=== PATIENT | male | born 1955 | race Caucasian/White ===

== ENCOUNTER 2017-02-05 15:56 | Emergency (ER) | payer BC ==
[2017-02-05] MEDS ORDERED: Adacel Vial IM ONE (16:06)
--- NOTE | 2017-02-05 16:09 | ERPHSYRPT ---
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 PATIENT COMPLAINS OF PAIN WITH LACERATION. Method of Injury: fell, incised Occurred: just prior to arrival Quality: constant Severity of Pain-Max: mild Severity of Pain-Current: mild Lower Extremities Pain: leg: left Modifying Factors: Improves With: movement Associated Symptoms: none Allergies/Adverse Reactions: No Known Drug Allergies Allergy (Unverified 02/05/17 16:04) Home Medications: Aspirin 81 gm Chew [Baby Aspirin 81 mg Chew] 81 mg PO DAILY 02/05/17 [ History] Naproxen Sodium [Aleve] 220 mg PO DAILY 02/05/17 [History] Hx Tetanus, Diphtheria Vaccination/Date Given: No Hx Influenza Vaccination/Date Given: No Hx Pneumococcal Vaccination/Date Given: No Immunizations Up to Date: Yes - Review of Systems Musculoskeletal: Injury - Past Medical History Pertinent Past Medical History: No - Past Surgical History Past Surgical History: Yes Musculoskeletal: Orthopedic Surgery - Social History Smoking Status: Never smoker Exposure to second hand smoke: No Drug Use: none Patient Lives Alone: No - Nursing Vital Signs Nursing Vital Signs: Initial Vital Signs Temperature 98.2 F Temperature Source Oral Pulse Rate 84 Respiratory Rate 18 Blood Pressure [Right Arm] 144/95 Pain Intensity 0 - Physical Exam General Appearance: no apparent distress Legs Exam: left leg: pain, soft tissue tenderness, swelling (THERE IS A 7CM LACERATION MID LEFT BOYD, NO EVIDENCE FOREIGN BODY) Foot Exam: left foot: other (PEDIS PULSE 2+) Neuro/Tendon Exam: normal sensation, normal motor functions Mental Status Exam: alert SpO2 Interpretation: normal SpO2: 95 Oxygen Delivery: Room Air Procedures - Laceration/Wound Repair Left Wound Location: Left, lower leg Wound Length (cm): 7 Wound's Depth, Shape: linear Wound Explored: clean Irrigated: Yes Hibiclens Prep: Yes Anesthesia: local, 2% Lidocaine Volume Anesthetic (ccs): 7 Wound Repaired With: sutures Suture Size/Type: 4-0 Number of Sutures: 13 Layer Closure?: No Sterile Dressing Applied?: Yes - Radiology Exams Left Lower Leg X-ray Interpretation: Interpreted by me, Negative, No Fracture Ordered Tests: Active Orders 24 hr Category Date Time Status LOWER LEG Stat Exams 02/05/17 16:08 Taken Medication Summary Discontinued Medications Generic Name Dose Route Start Last Admin Trade Name Freq PRN Reason Stop Dose Admin Bacitracin 0.9 gm 02/05/17 17:25 Baciguent Packet TP 02/05/17 17:26 STAT ONE Diphtheria/Tetanus/Acell Pertussis Confirm 02/05/17 16:06 Adacel Vial Administered 02/05/17 16:07 Dose 0.5 ml IM .STK-MED ONE - Progress Progress: improved Counseled pt/family regarding: diagnosis, need for follow-up, rad results - Departure Time of Disposition: 17:35 Departure Disposition: Home Clinical Impression: LACERATION LEFT BOYD Condition: Stable Critical Care Time: No Instructions: Care for a Laceration After Repair Additional Instructions: HAVE STITCHES REMOVED AT 12 DAYS. ANTIBIOTIC KEFLEX 500MG EVERY 8 HOURS FOR 10 DAYS. NORCO 10/325 EVERY 4 HOURS FOR PAIN NEEDED. WATCH FOR SIGNS OF INFECTION REDNESS, SWELLING AND DRAINAGE. APPLY ICE OVER WOUND WITH ELEVATION EVERY 4 HOURS, 30 MINUTES FOR 48 HOURS. Prescriptions: Hydrocodone/APAP 10/325 mg [Power 10/325 MG Tablet] 1 tab PO Q4H PRN PRN # 20 tablet PRN Reason: Pain Cephalexin Mh 500 mg [Keflex 500 mg] 500 mg PO TID #30 capsule
[2017-02-05] MEDS ORDERED: BACIGUENT PACKET TP ONE (17:25)
[2017-02-05] MEDS ORDERED: Xylocaine-Mpf 2% 5 Ml Vial IJ ONE (17:28)
[2017-02-05] MEDS ORDERED: XYLOCAINE 1% HCL 20 ML MDV ONE (17:28)
[2017-02-05] MEDS ORDERED: BACIGUENT PACKET ONE (17:28)
[2017-02-05 17:39] VITALS: BP 117/77; PULSE 80; O2SAT 93
[2017-02-05] MEDS ORDERED: XYLOCAINE 2% HCL 20 ML MDV ONE (17:47)
--- NOTE | 2017-02-05 21:55 | XRAY ---
Indication: Laceration. Comparison: None 2 views of the left lower leg demonstrates mild medial knee degenerative changes. No other bony, articular, or soft tissue abnormalities.
== END 2017-02-05 17:39 | disposition home or self-care (01) ==
LOC: ED 15:56
PROC: 0HQLXZZ Repair Left Lower Leg Skin, External Approach (ICD-10-PCS; principal; 2017-02-05)
DX: S81.812A Laceration without foreign body, left lower leg, initial encounter (principal); W45.8XXA Other foreign body or object entering through skin, initial encounter; Y93.H3 Activity, building and construction
CPT/HCPCS: 12002; 73590; 90471; 90715; 96372; 99284; A9270-GY

== ENCOUNTER 2017-03-12 10:45 | Emergency (ER) | payer BC ==
[2017-03-12 11:11] VITALS: O2SAT 98
--- NOTE | 2017-03-12 11:15 | ERPHSYRPT ---
- History of Present Illness Time Seen by Provider: 03/12/17 11:11 Source: patient Exam Limitations: no limitations Patient Subjective Stated Complaint: pt states he recieved sutured to left lower leg on Feb 05 2017. states area has never healed. states he accidently bumped the area and area opened up again. Triage Nursing Assessment: pt pink, warm, dry. yellow drainage noted. pt afebrile. Physician History: pt states he recieved sutured to left lower leg on Feb 05 2017. states area has never healed. states he accidently bumped the area and area opened up again. denies fever, denies pain n left leg Lower Extremities Pain: leg: left (mild redness erythema around wound) Modifying Factors: Improves With: nothing Associated Symptoms: none Allergies/Adverse Reactions: No Known Drug Allergies Allergy (Unverified 03/12/17 11:10) Home Medications: Aspirin 81 gm Chew [Baby Aspirin 81 mg Chew] 81 mg PO DAILY 02/05/17 [ History] Glucosamine/D3/Boswellia Roxie [Osteo Bi-Flex Tablet] 1 each PO DAILY 03/12/17 [ History] Naproxen Sodium [Aleve] 220 mg PO DAILY 03/12/17 [History] Hx Tetanus, Diphtheria Vaccination/Date Given: Yes (up to date) Hx Influenza Vaccination/Date Given: No Hx Pneumococcal Vaccination/Date Given: No Immunizations Up to Date: Yes - Review of Systems Constitutional: No Symptoms, No Fever Skin: Cellulitis Neurological: No Symptoms Psychological: No Symptoms - Past Medical History Pertinent Past Medical History: No - Past Surgical History Past Surgical History: Yes Gastrointestinal: Cholecystectomy Musculoskeletal: Orthopedic Surgery Other Surgical History: carpal tunel - Social History Smoking Status: Never smoker Exposure to second hand smoke: No Drug Use: none Patient Lives Alone: No - Nursing Vital Signs Nursing Vital Signs: Initial Vital Signs Temperature 97.7 F Temperature Source Oral Pulse Rate 74 Respiratory Rate 18 Blood Pressure [Right Arm] 155/78 Pain Intensity 0 - Physical Exam General Appearance: no apparent distress Eyes, Ears, Nose, Throat Exam: normal ENT inspection Legs Exam: left leg: soft tissue tenderness, swelling SpO2: 98 Oxygen Delivery: Room Air - Course Nursing assessment & vital signs reviewed: Yes Ordered Tests: Active Orders 24 hr Category Date Time Status Wound Care STAT Care 03/12/17 10:56 Active - Progress Progress: improved Counseled pt/family regarding: diagnosis, need for follow-up - Departure Time of Disposition: 11:13 Departure Disposition: Home Clinical Impression: Left leg cellulitis Condition: Stable Critical Care Time: No Referrals: VERONICA ROSS MD [Primary Care Provider] - Instructions: Cellulitis -- Adult Additional Instructions: LACERATION CARE 1. Do not use peroxide, merthiolate, alcohol, or betadine. 2. Keep wound clean and dry. 3. Change dressing if it becomes wet or soiled. 4. If you must work, wear protective covering. 5. You may return to the emergency department or see your family physician for suture removal. 6. See your family physician or return to the emergency department for any of the following signs or symptoms: A. Redness B. Swelling C. Discolored drainage D. Red streaks E. Elevated temperature F. Other signs of infection Prescriptions: Levofloxacin [Levaquin 500 MG Tablet] 500 mg PO QAM #7 tablet
[2017-03-12 11:32] VITALS: BP 126/72; PULSE 81
== END 2017-03-12 11:30 | disposition home or self-care (01) ==
LOC: ED 10:45
DX: L03.116 Cellulitis of left lower limb (principal)
CPT/HCPCS: 99283

== ENCOUNTER 2025-07-07 20:43 | Emergency (ER) | payer MEDICARE, OTHER ==
[2025-07-07 20:54] VITALS: TEMP 98.3; O2SAT 95
--- NOTE | 2025-07-07 21:20 | ERPHSYRPT ---
- History of Present Illness Time Seen by Provider: 07/07/25 20:51 Source: patient Exam Limitations: no limitations Patient Subjective Stated Complaint: c/o nosebleed Triage Nursing Assessment: Patient brought to ED by with w/o nosebleed from left nare. patient has guaze in place at this time. states the bleeding started arounf 1630 and hasn't stopped. takes plavix at home, skin w/n/d, afebrile, gait steady, denies pain at this time, afebrile, patient doesn't appear to be in any distress, denies lightheadedness, denies trauma Physician History: 70-year-old male presents to the emergency room with bleeding left nare patient reports on Plavix and aspirin he has been coughing sneezing and having runny nose recently he reports she uses CPAP at night which dries out his nose he is now reporting some bleeding that started at 4:30 PM and is having difficulty controlling it denies any trauma now in ED for further eval denies dizziness denies any shortness of breath Timing/Duration: this afternoon Severity: mild ENT Location: nose Prearrival Treatment: squeezing nostrils Associated Symptoms: denies symptoms Allergies/Adverse Reactions: No Known Drug Allergies Allergy (Verified 07/07/25 20:46) Home Medications: Aspirin 81 gm Chew [Baby Aspirin 81 mg Chew] 81 mg PO DAILY 02/05/17 [History] Alirocumab [Praluent Pen] 150 mg PO .[id number] 07/07/25 [History] Clobetasol Propionate/Emoll [Clobetasol Emollnt 0.05% Foam] 1 applic TOP HS 07/07/25 [History] Clopidogrel Bisulfate [Clopidogrel] 75 mg PO DAILY 07/07/25 [History] Losartan Potassium 50 mg PO DAILY 07/07/25 [History] Metoprolol Succinate 25 mg PO DAILY 07/07/25 [History] Multivitamin/Iron/Folic Acid [Centrum Adults Tablet] 1 tab PO DAILY 07/07/25 [History] Hx Tetanus, Diphtheria Vaccination/Date Given: No Hx Influenza Vaccination/Date Given: No Hx Pneumococcal Vaccination/Date Given: No Travel Risk - International Travel Have you traveled outside of the country in past 3 weeks: No - Emerging Infectious Disease Are you exhibiting symptoms associated with any current EIDs: No - Review of Systems Constitutional: No Fever, No Chills Eyes: No Symptoms Ears, Nose, & Throat: Nose Congestion, Epistaxis Respiratory: No Cough, No Dyspnea Cardiac: No Chest Pain, No Edema, No Syncope Abdominal/Gastrointestinal: No Abdominal Pain, No Nausea, No Vomiting, No Diarrhea Genitourinary Symptoms: No Dysuria Musculoskeletal: No Back Pain, No Neck Pain Skin: No Rash Neurological: No Dizziness, No Focal Weakness, No Sensory Changes Psychological: No Symptoms Endocrine: No Symptoms All Other Systems: Reviewed and Negative - Past Medical History Pertinent Past Medical History: No Neurological History: No Pertinent History Cardiac History: No Pertinent History Respiratory History: No Pertinent History Endocrine Medical History: No Pertinent History Musculoskeletal History: No Pertinent History Other Medical History: L carpal tunnel, Trigger finger, B TKA, left shoulder surgery - Past Surgical History Past Surgical History: Yes Cardiac: Cardiac Stent Gastrointestinal: Cholecystectomy Musculoskeletal: Orthopedic Surgery Other Surgical History: carpal tunel, left shoulder surgery - Social History Smoking Status: Never smoker Exposure to second hand smoke: No Drug Use: none - Social Determinants of Health Will the patient participate in the screening: Yes Do you worry about a steady place to live?: No Do you have any problems with any of the following?: No known problems In the past 12 months,have you had to go without utilities?: No Transportation Issues: No Has anyone in your support network made you feel unsafe?: No Have you or anyone in your house had to go w/o enough food: No - Nursing Vital Signs Nursing Vital Signs: Initial Vital Signs Temperature 98.3 F 07/07/25 20:47 Pulse Rate 65 07/07/25 20:47 Respiratory Rate 18 07/07/25 20:47 Blood Pressure 143/82 07/07/25 20:47 O2 Sat by Pulse Oximetry 95 07/07/25 20:47 Pain Scale Pain Intensity 0 - Physical Exam General Appearance: no apparent distress, alert Eye Exam: bilateral eye: PERRL, EOMI Nasal Exam: dried blood Throat Exam: pharynx normal, moist mucus membranes, No tonsillar exudate Neck Exam: supple Cardiovascular/Respiratory Exam: normal breath sounds, regular rate/rhythm Abdominal Exam: non-tender, soft Neurologic Exam: alert, oriented x 3, sensation nml, No motor deficits Skin Exam: normal color, warm, dry SpO2: 95 - Progress Progress: improved Progress Note: 07/07/25 21:19 Patient has an anterior left nare dried blood clot patient will be discharged with instructions for epistaxis - Departure Departure Disposition: Home Clinical Impression: Epistaxis Condition: Stable Critical Care Time: No Referrals: VERONICA ROSS MD [Primary Care Provider, [facility]] - Follow up/PCP as directed ANTHONY HOLT [COURTESY STAFF, EAR, NOSE, THROAT] - Follow up/PCP as directed Instructions: Nosebleeds (DC)
[2025-07-07 21:34] VITALS: BP 141/99; PULSE 75; RESP 16
== END 2025-07-07 21:33 | disposition home or self-care (01) ==
LOC: ED 20:43
DX: R04.0 Epistaxis (principal); Z79.02 Long term (current) use of antithrombotics/antiplatelets; Z79.899 Other long term (current) drug therapy